=== PATIENT | female | born 1960 | race Two or more races ===

== ENCOUNTER 2016-12-22 08:22 | Emergency (ER) | payer OTHER ==
[~2016-12-22] VITALS: Ht 162.6 cm; Wt 90.7 kg
--- NOTE | 2016-12-22 08:35 | NUR ---
[facility] C/O LEFT SIDED RIB PAIN WITH A COUGH X 3 DAYS. PATIENT IS AAO4. APPEARS IN NO APPARENT DISTRESS, RESPIRATION EVEN AND UNLABORED. SKIN IS WARM TO TOUCH AND NON DIAPHORETIC,. PATIENT IS AFEBRILE. VSS. AWAITING FOR MD
[2016-12-22 10:01] LABS: BASOPHILS # (AUTO) 0.1 /CMM (0.0-0.2); BASOPHILS % (AUTO) 0.4 % (0.0-2.0); EOSINOPHILS # (AUTO) 0.1 /CMM (0.0-0.7); EOSINOPHILS % (AUTO) 0.4 % (0.0-6.0); HEMATOCRIT 39 % (33-45); HEMOGLOBIN 13.1 g/dL (11.5-14.8); LYMPHOCYTES # (AUTO) 2.7 /CMM (0.8-4.8); LYMPHOCYTES % (AUTO) 18.8 % (20.0-44.0); MEAN CORPUSCULAR HEMOGLOBIN 28 PG (26.0-33.0); MEAN CORPUSCULAR HGB CONC 34 g/dl (31.0-36.0); MEAN CORPUSCULAR VOLUME 84 fL (82-100); MONOCYTES # (AUTO) 0.9 /CMM (0.1-1.30); MONOCYTES % (AUTO) 6.3 % (2.0-12.0); NEUTROPHILS # (AUTO) 10.4 /CMM (1.8-8.9); NEUTROPHILS % (AUTO) 74.1 % (43.0-81.0); PLATELET COUNT (AUTO) 362 /CMM (150-450); RDW COEFFICIENT OF VARIATION 14.2 (11.5-15.0); RED BLOOD CELL COUNT(AUTO) 4.62 MIL/uL (4.0-5.2); WHITE BLOOD COUNT (AUTO) 14.2 K/uL (4.3-11.0)
[2016-12-22 10:10] LABS: CALCIUM, SERUM 8.3 mg/dL (8.5-10.1); CREATININE 0.9 mg/dL (0.6-1.3); POTASSIUM 4.3 mmol/L (3.5-5.1)
[2016-12-22 10:12] LABS: PROTHROMBIN TIME 10.4 SECS (9.5-12.7)
[2016-12-22 10:32] LABS: D-DIMER 0.87 mg/L(FEU (0.17-0.50)
[2016-12-22] MEDS ORDERED: IV NS 0.9% 250 ML IV ONE (10:38)
[2016-12-22] MEDS ORDERED: IOHEXOL-300 100 ML VIAL IV ONE (10:38)
[2016-12-22] MEDS ORDERED: CT SWABBABLE VALVE TRANS SET 1 EA INFUS.SET MC ONE (10:38)
[2016-12-22] MEDS ORDERED: IBUPROFEN 600 MG TABLET PO ONE ×2 (11:02→11:30)
[2016-12-22] MEDS ORDERED: IOHEXOL-350 100 ML VIAL IV ONE (11:31)
[2016-12-22] MEDS ORDERED: IV SET PRIMARY PUMP SET 1 EA INFUS.SET MC ONE (12:22)
[2016-12-22] MEDS ORDERED: CEFTRIAXONE 1GM BAG (ER ONLY) 50 ML IV ONE ×2 (12:22→12:30)
[2016-12-22] MEDS ORDERED: IV NS 0.9% 2,000 ML ONE (12:22)
[2016-12-22] MEDS ORDERED: IV NS 0.9% 1,000 ML BAG IV ONE (12:30)
[2016-12-22] MEDS ORDERED: IV NS 0.9% 1,000 ML ONE (12:35)
--- NOTE | 2016-12-22 13:05 | NUR ---
CALLED [facility] FOR READ ON CT
--- NOTE | 2016-12-22 13:48 | NUR ---
called replaced by [facility] for followup for read on ct
[2016-12-22 15:42] VITALS: BP 114/68
--- NOTE | 2016-12-22 15:42 | NUR ---
Patient discharged to home in stable condition. Written and verbal after care instructions given. Patient verbalizes understanding of instruction.
== END 2016-12-22 15:43 | disposition home or self-care (01) ==
LOC: ER 08:26
DX: J18.9 Pneumonia, unspecified organism (principal); Z90.81 Acquired absence of spleen
CPT/HCPCS: 36415; 71020-TC; 80048-TC; 83605-TC; 85025-TC; 85378-TC; 85730-TC; 87040-TC; A4606; J0696; J7030; J7050; Q9967; Z7610